=== PATIENT | male | born 1960 | race Caucasian/White ===

== ENCOUNTER 2017-08-30 08:32 | Emergency (ER) | payer MEDICAID ==
[~2017-08-30] VITALS: Ht 190.5 cm; Wt 118.2 kg
[2017-08-30] MEDS ORDERED: [UNRECOGNIZED DRUG - REMARK] (08:36)
[2017-08-30] MEDS ORDERED: AMIT10TA6 PO (08:36)
[2017-08-30] MEDS ORDERED: BUPIVACAINE HCL/PF 0.5% 10 ML VIAL SQ ONE (09:45)
[2017-08-30] MEDS ORDERED: BACITRACIN 0.9 GM PACKET OINTMENT TP ONE (09:45)
[2017-08-30 10:25] VITALS: BP 138/89
[2017-08-30] MEDS ORDERED: PERTUSS(ACELL),DIPH,TET VAC/PF 0.5 ML VIAL IM ONE (10:30)
== END 2017-08-30 10:41 | disposition home or self-care (01) ==
LOC: EMS 08:34
DX: S61.242A Puncture wound with foreign body of right middle finger without damage to nail, initial encounter (principal); F17.210 Nicotine dependence, cigarettes, uncomplicated; Z88.0 Allergy status to penicillin; W45.8XXA Other foreign body or object entering through skin, initial encounter; Y93.89 Activity, other specified; Y92.89 Other specified places as the place of occurrence of the external cause; Y99.8 Other external cause status
CPT/HCPCS: 10120; 90471; 90715; 99284; 99406; J3490